=== PATIENT | male | born 1935 | race Caucasian/White ===

== ENCOUNTER 2025-02-23 12:22 | Inpatient (IN) | payer MEDICARE, OTHER, SELFPAY ==
[2025-02-23] VITALS (7 sets, daily range): BP systolic 121–150; BP diastolic 61–82; BMI 23.0
[2025-02-23] MEDS: MORPHINE SULFATE 2 MG IV (09:51)
--- NOTE | 2025-02-23 09:56 | ED.GENMED ---
History of Present Illness
<Nesha Hernández PA-C - Last Filed: 02/23/25 22:51>
General
Chief Complaint: Fall
Source: snf
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
Time Seen by Provider: 02/23/25 09:28
History of Present Illness
History of Present Illness:
Patient is an 89-year-old male history dementia, atrial fibrillation on Eliquis, hypertension, diabetes who presents to the emergency department via EMS from nursing facility after unwitnessed fall. History taking extremely limited as patient is
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 I did call and speak with one of the nurses at his facility who state that he was found on the ground in his room around 8:15 AM. A Belarusian speaking staff member at
the facility did have a conversation with him and apparently he had gotten up at his apartment to walk over and close his window when he tripped and fell. He states that he did not hit his head.
Patient's only complaint at that time was pain in his right hip.
On initial evaluation in the emergency department he persistently points to his right hip.
He is anticoagulated on Eliquis. He typically walks independently without a walker.
Review of Systems
<Nesha Hernández PA-C - Last Filed: 02/23/25 22:51>
Review of Systems
Allergies reviewed?: Yes
All Other Systems: ROS reviewed and negative except as documented in HPI and ROS
Phy Exam
<Nesha Hernández PA-C - Last Filed: 02/23/25 22:51>
Physical Exam
Physical Exam:
Vitals: Patient's vital signs are stable. Afebrile
General: Patient appears in no distress.
Skin: Warm and dry, no rashes or lesions
Head: Normocephalic, atraumatic
Eyes: Sclera nonicteric.
Throat: Protecting airway
Neck: Normal ROM, no cervical spine tenderness.
Cardiac: Regular rate and rhythm, no murmurs.
Pulm: Normal respiratory effort. Lungs clear bilaterally
Abdomen: Abdomen soft without obvious tenderness. No ecchymoses.
Extremities: Very minimal shortening and external rotation of right lower extremity. Tenderness to right hip as well as pain with any range of motion in right hip. Left lower extremity and bilateral upper extremities appear atraumatic and
nontender. Distal pulses intact
Neuro: Alert. 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 Moving all extremities
Psychiatric: Normal affect.
Course
<Nesha Hernández PA-C - Last Filed: 02/23/25 22:51>
Orders/Labs/Results
Orders:
Orders
02/23/25 Breakfast
NPO
Allow oral meds: Yes
Allow clear liquids: Sips of Clears
02/23/25 09:31
Electrocardiogram (*1) Urgent
Reason for Study: Other
Other Reason for Exam: fall
02/23/25 09:32
EKG- Treatment ONCE
02/23/25 09:40
CT Head W/o Iv Contrast Urgent
Comment:
Reason For Exam: unwitnessed fall
Cervical Spine wo Contrast CT [CT Cervical Spine W/o Iv Contr] Urgent
Comment:
Reason For Exam: unwitnessed fall
Morphine Sulfate 2 mg IV NOW STA
Hip, Right 2-3 Views [CR Hip - RT w/wo Pel 2-3 Vw*] Urgent
Comment:
Reason For Exam: fall
Include a pelvis x-ray?: Yes
02/23/25 09:42
pacemaker [Interrogate Pacemaker- Treatment] ONCE
02/23/25 09:57
CR Chest Single View Urgent
Reason For Exam: Fall
02/23/25 09:58
Basic Metabolic Panel Urgent
Complete Blood Count/With Diff Urgent
Creatine Phosphokinase Urgent
Comment: ADD ON
02/23/25 12:08
Femur, Right 2 View [CR Femur - Right Min 2 Vw] Urgent
Comment: requested by ortho
Reason For Exam: fall, intertroch hip fx
02/23/25 12:14
Admit/Transfer Patient As Directed
Co-Sign Provider:
Level of Care: Inpatient admission
Assign to:: Medical/Surgical
Physician / Group: dhiraj
Diagnosis: hip fracture
Reason for Hospitalization: hip fracture
Expected length of stay greater than two midnights?: Yes
ELOS- Estimated Length of Stay in days: 2
I certify the patient meets the requirements for IP care: Yes
02/23/25 12:15
Code Status As Directed
Resuscitation Status: Full Code
PRN Pain Medication Management As Directed
May give lesser potent ordered pain med per pt: Yes
preference::
Protocol:: Medication orders for pain may be administered in a
manner that supports deferring to patient preference
when the pt is:
- Requesting an ordered lesser potent pain medication.
Least to most potent pain medications are defined
as: acetaminophen < NSAID < tramadol < opioids
(morphine, oxycodone, hydromorphone).
- Requesting a lesser dose of the same medication IF
ORDERED.
- Requesting a less intrusive route of administration
if both routes are prescribed by the provider (PO <
IV).
02/23/25 12:21
Add On- LAB Routine
Tests Added?: ck
02/23/25 13:28
0.9% Sodium Chloride 1000 ml [Nss] 1,000 ml IV 80 mls/hr
Acetaminophen [Tylenol] 650 mg PO Q4HPRN PRN
02/23/25 13:28
Activity As Directed
Activity Level: As Tolerated
Pneumatic Compression Sleeves As Directed
Type: Knee high
Vital Signs As Directed
Frequency: Per unit guidelines
DX Deep Vein Thrombosis Video Routine
02/23/25 Dinner
Regular
At Your Request: Non-Participating
Does patient need a safe tray?: No
02/24/25 06:00
Complete Blood Count/With Diff IN AM
Comprehensive Metabolic Panel IN AM
Abnormal Lab Results
02/23/25
09:58
WBC 11.7 H 10^3/uL
(4.8-10.8)
RBC 4.08 L 10^6/uL
(4.70-6.10)
Hgb 11.8 L g/dL
(13.0-18.0)
Hct 36.0 L %
(39.0-52.0)
MCHC 32.8 L g/dL
(33.0-37.0)
RDW 14.9 H %
(11.5-14.5)
MPV 11.3 H fL
(7.4-10.4)
Absolute Neuts (auto) 10.1 H 10^3/uL
(1.4-6.5)
Absolute Lymphs (auto) 1.0 L 10^3/uL
(1.2-3.4)
Neutrophils % 85.9 H %
(42.2-75.2)
Lymphocytes % 8.1 L %
(20.5-51.1)
BUN 25 H mg/dl
(9-20)
Creatinine 1.4 H mg/dL
(0.7-1.3)
Glucose 130 H mg/dl
(70-99)
02/23/25 09:58
02/23/25 09:58
Vital Signs
Initial and Last Documented VS:
Initial Vital Signs
Temp Pulse Resp BP Pulse Ox
97.7 F 64 18 126/76 99
02/23/25 09:34 02/23/25 09:34 02/23/25 09:34 02/23/25 09:34 02/23/25 09:34
Last Documented Vital Signs
Temp Pulse Resp BP Pulse Ox
97.6 F 78 18 141/78 96
02/23/25 15:58 02/23/25 15:58 02/23/25 15:58 02/23/25 15:58 02/23/25 16:26
<Edwin Ballard, DO - Last Filed: 02/23/25 13:06>
Orders/Labs/Results
Orders:
Orders
02/23/25 Breakfast
NPO
Allow oral meds: Yes
Allow clear liquids: Sips of Clears
02/23/25 09:31
Electrocardiogram (*1) Urgent
Reason for Study: Other
Other Reason for Exam: fall
02/23/25 09:32
EKG- Treatment ONCE
02/23/25 09:40
CT Head W/o Iv Contrast Urgent
Comment:
Reason For Exam: unwitnessed fall
Cervical Spine wo Contrast CT [CT Cervical Spine W/o Iv Contr] Urgent
Comment:
Reason For Exam: unwitnessed fall
Morphine Sulfate 2 mg IV NOW STA
Hip, Right 2-3 Views [CR Hip - RT w/wo Pel 2-3 Vw*] Urgent
Comment:
Reason For Exam: fall
Include a pelvis x-ray?: Yes
02/23/25 09:42
pacemaker [Interrogate Pacemaker- Treatment] ONCE
02/23/25 09:57
CR Chest Single View Urgent
Reason For Exam: Fall
02/23/25 09:58
Basic Metabolic Panel Urgent
Complete Blood Count/With Diff Urgent
Creatine Phosphokinase Urgent
Comment: ADD ON
02/23/25 12:08
Femur, Right 2 View [CR Femur - Right Min 2 Vw] Urgent
Comment: requested by ortho
Reason For Exam: fall, intertroch hip fx
02/23/25 12:14
Admit/Transfer Patient As Directed
Co-Sign Provider:
Level of Care: Inpatient admission
Assign to:: Medical/Surgical
Physician / Group: dhiraj
Diagnosis: hip fracture
Reason for Hospitalization: hip fracture
Expected length of stay greater than two midnights?: Yes
ELOS- Estimated Length of Stay in days: 2
I certify the patient meets the requirements for IP care: Yes
02/23/25 12:15
Code Status As Directed
Resuscitation Status: Full Code
PRN Pain Medication Management As Directed
May give lesser potent ordered pain med per pt: Yes
preference::
Protocol:: Medication orders for pain may be administered in a
manner that supports deferring to patient preference
when the pt is:
- Requesting an ordered lesser potent pain medication.
Least to most potent pain medications are defined
as: acetaminophen < NSAID < tramadol < opioids
(morphine, oxycodone, hydromorphone).
- Requesting a lesser dose of the same medication IF
ORDERED.
- Requesting a less intrusive route of administration
if both routes are prescribed by the provider (PO <
IV).
02/23/25 12:21
Add On- LAB Routine
Tests Added?: ck
02/23/25 13:28
0.9% Sodium Chloride 1000 ml [Nss] 1,000 ml IV 80 mls/hr
Acetaminophen [Tylenol] 650 mg PO Q4HPRN PRN
02/23/25 13:28
Activity As Directed
Activity Level: As Tolerated
Pneumatic Compression Sleeves As Directed
Type: Knee high
Vital Signs As Directed
Frequency: Per unit guidelines
DX Deep Vein Thrombosis Video Routine
02/23/25 Dinner
Regular
At Your Request: Non-Participating
Does patient need a safe tray?: No
02/24/25 06:00
Complete Blood Count/With Diff IN AM
Comprehensive Metabolic Panel IN AM
Abnormal Lab Results
02/23/25
09:58
WBC 11.7 H 10^3/uL
(4.8-10.8)
RBC 4.08 L 10^6/uL
(4.70-6.10)
Hgb 11.8 L g/dL
(13.0-18.0)
Hct 36.0 L %
(39.0-52.0)
MCHC 32.8 L g/dL
(33.0-37.0)
RDW 14.9 H %
(11.5-14.5)
MPV 11.3 H fL
(7.4-10.4)
Absolute Neuts (auto) 10.1 H 10^3/uL
(1.4-6.5)
Absolute Lymphs (auto) 1.0 L 10^3/uL
(1.2-3.4)
Neutrophils % 85.9 H %
(42.2-75.2)
Lymphocytes % 8.1 L %
(20.5-51.1)
BUN 25 H mg/dl
(9-20)
Creatinine 1.4 H mg/dL
(0.7-1.3)
Glucose 130 H mg/dl
(70-99)
02/23/25 09:58
02/23/25 09:58
Vital Signs
Initial and Last Documented VS:
Initial Vital Signs
Temp Pulse Resp BP Pulse Ox
97.7 F 64 18 126/76 99
02/23/25 09:34 02/23/25 09:34 02/23/25 09:34 02/23/25 09:34 02/23/25 09:34
Last Documented Vital Signs
Temp Pulse Resp BP Pulse Ox
97.6 F 78 18 141/78 96
02/23/25 15:58 02/23/25 15:58 02/23/25 15:58 02/23/25 15:58 02/23/25 16:26
<Nesha Hernández PA-C - Last Filed: 02/23/25 22:51>
MDM/Problems Addressed
Differential Diagnosis Includes:
Not limited to: Hip fracture, hip dislocation, pelvic fracture, cervical spine fracture, intracranial hemorrhage, syncope, cardiac arrhythmia, orthostatic hypotension, acute dehydration, etc.
MDM/Problems Addressed:
89-year-old male with right hip pain after unwitnessed fall this morning. No report of head strike or loss of consciousness.
Vitals stable. 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 He does appear to have pain in his right hip. No evidence of other traumatic
injuries. Distal pulses intact bilaterally.
While there�s no report of syncope � given unwitnessed nature, will obtain basic labs, EKG, and interrogate pacemaker. Will check CT head and cervical spine as well as x-ray of right hip. Will treat pain.
Update: Labs reviewed. Mild renal insufficiency. CT head /cervical spine without acute abnormalities. Right hip x-ray reveals intertrochanteric fracture of right femur.
Patient will require admission for further management of right hip fracture. Discussed with orthopedics. Patient accepted to hospitalist service in stable condition.
Chronic conditions affecting care:
Atrial fibrillation on Xarelto, dementia
Acute Exacerbation and/or Progression of Chronic Illness:
N/A
<Nesha Hernández PA-C - Last Filed: 02/23/25 22:51>
*Radiology
Radiology exam reviewed: preliminary read by ED provider (Right hip x-ray reviewed by me -intertrochanteric fracture of right hip)
*Pulse Oximetry
SaO2: 99
Oxygen Mode of Delivery: Room air
Patient hypoxic: no
*EKG
Interpreted by ED Provider?: Yes
EKG Intrepretation Date: 02/23/25
Interpretation: abnormal
Comparison EKG: no comparison EKG present
Heart Rate: 74
Rate: normal
Rhythm: av sequential
Interval: normal QT interval
QRS Pattern: normal QRS
Ischemia: no ischemia
*Sales Representative [employer] Interpretation
Rate: normal
Interpretation: abnormal
Heart Rate: 74
Rhythm: av sequential
*Critical Care Note
Total Time (30-74mins, 75-104mins- exclusive of procedures): Not Applicable
<Nesha Hernández PA-C - Last Filed: 02/23/25 22:51>
Patient Management
Discussion with other providers: Hospitalist and Director Of Maintenance (Discussed with orthopedics)
ED Attending Note
<Nesha Hernández PA-C - Last Filed: 02/23/25 22:51>
-
Portions of this chart may have been created with voice recognition software.� Occasional wrong word or��sound alike� substitutions may have occurred due to the inherent limitations of voice recognition software.
<Edwin Ballard DO - Last Filed: 02/23/25 13:06>
ED Attending Note
Patient seen and examined by attending physician: Yes
I performed the substantive portion of visit, reviewed & personally made and approve the management plan that is documented in note by myself or LITO.: Yes
ED Attending Note:
I reviewed the x-ray. Patient is found to have a right intertrochanteric fracture. Ortho was consulted. Patient will be admitted to the hospital.
Discharge Plan
Departure
Patient Disposition: Admit
Date of Disposition: 02/23/25
Time of Disposition: 12:01
Presentation/result/management discussed w/ accepting MD/DO: Hospitalist
Discharge Problem:
Intertrochanteric fracture of right hip
Interventions
Interventions:
*Risk Screen - Suicide Last Done: 02/23/25 10:14
*General Assessment Last Done: 02/23/25 09:34
*Neglect/Abuse Screening Last Done: 02/23/25 09:34
*ED- Fall Risk Assessment Last Done: 02/23/25 09:34
*ED COVID-19 Vaccine History Last Done: 02/23/25 09:34
*ED Influenza Vaccine History Last Done: 02/23/25 09:34
*Nursing Disposition Last Done: 02/23/25 12:55
ED-Musculoskeletal Assessment Last Done: 02/23/25 10:14
ED- Neurological Assessment Last Done: 02/23/25 10:14
ED-Skin Assessment Last Done: 02/23/25 10:14
Discharge Date and Time
Discharge Date/Time: 02/23/25 13:02
[2025-02-23 10:05] LABS: Hematocrit 36.0 % (39.0-52.0); Hemoglobin 11.8 g/dL (13.0-18.0); Mean Corp Hgb Conc. 32.8 g/dL (33.0-37.0); Mean Corpuscular Volume 88.2 fL (80.0-94.0); Nucleated Red Blood Cells % 0 % (-); Platelet Count 224 10^3/uL (130-400); Red Cell Dist. Width 14.9 % (11.5-14.5)
[2025-02-23 10:30] LABS: Blood Urea Nitrogen 25 mg/dl (9-20); Calcium 9.0 mg/dl (8.4-10.2); Carbon Dioxide 24 mmol/L (22-30); Chloride 106 mmol/L (98-107); Estimated Creatinine Clearance 36 ml/min; Glucose 130 mg/dl (70-99); Potassium 4.2 mmol/L (3.5-5.1); Sodium 139 mmol/L (135-145); eGFR 48.34
--- NOTE | 2025-02-23 12:23 | HPS.HSE ---
Family Physician
-
Family Physician: Alexandre Huynh MD
Chief Complaint
-
fall, right hip pain
History of Present Illness
89-year-old Mozambican-speaking male past medical history of atrial fibrillation on Eliquis with pacemaker, dementia, hypertension, diabetes presenting from nursing facility after unwitnessed fall. 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
As per nurses at the facility he was found down on the ground at 8:15 AM. Mozambican-speaking staff member at the facility had a conversation with him and he had gone up at his apartment to walk over and close his window when he tripped and fell. Did
not hit his head. He only complained of right hip pain which he continues to have.
He normally ambulates independently with a walker.
Patient without any other cardiac issues apart from atrial fibrillation with pacemaker.
Medical History
Past Medical History
Past Medical History: Reports Other (atrial fibrillation on Eliquis with pacemaker, dementia, hypertension, diabetes)
Past Surgical History: Reports None
Social History
Tobacco: Non-smoker
Alcohol: None
Drug: None
Family History
Family History: Not pertinent
Allergies / Home Medications
Allergies reflects when Allergies were last updated in [facility].
Home Medications with original date entered in [facility]
Allergy/Medication List:
Allergies
Allergy/AdvReac Type Severity Reaction Status Date / Time
No Known Allergies Allergy Unverified 02/23/25 09:30
Home Medications
acetaminophen 325 mg tablet 650 mg PO Q6H PRN mild pain 02/23/25
apixaban 2.5 mg tablet (Eliquis) 2.5 mg PO BID 02/23/25
bisacodyl 10 mg rectal suppository 10 mg GA DAILY PRN constipation 02/23/25
cholecalciferol (vitamin D3) 125 mcg (5,000 unit) tablet (Vitamin D3) 125 mcg PO DAILY 02/23/25
finasteride 5 mg tablet (Proscar) 5 mg PO DAILY 02/23/25
folic acid 1 mg tablet 1 mg PO DAILY 02/23/25
magnesium hydroxide 400 mg/5 mL oral suspension (Milk of Magnesia) 30 ml PO DAILY PRN constipation 02/23/25
melatonin 3 mg tablet 3 mg PO HS PRN for sundowning behaviors 02/23/25
memantine ER 28 mg-donepezil 10 mg capsule sprinkle,ext.release 24 hr (Namzaric) 1 cap PO .EVENING 02/23/25
quetiapine 25 mg tablet (Seroquel) 25 mg PO DAILY 02/23/25
quetiapine 25 mg tablet (Seroquel) 75 mg PO HS 02/23/25
tamsulosin 0.4 mg capsule (Flomax) 0.4 mg PO HS 02/23/25
trazodone 50 mg tablet 50 mg PO HS 02/23/25
Review of Systems
-
History Source: Patient
A 12 point ROS was completed and negative except as noted: Yes
Constitutional: Reports No Symptoms
EENT: Reports No Symptoms
Respiratory: Reports No Symptoms
Cardiac: Reports No Symptoms
Abdomen/GI: Reports No Symptoms
: Reports No Symptoms
Musculoskeletal: Reports No Symptoms
Skin: Reports No Symptoms
Neurological: Reports No Symptoms
Endocrine: Reports No Symptoms
Hematologic/Lymphatic: Reports No Symptoms
Psych: Reports No Symptoms
Physical Exam
Vital Signs
Vital Signs
Temp Pulse Resp BP Pulse Ox
97.7 F 72 11 127/63 98
02/23/25 09:34 02/23/25 10:18 02/23/25 10:18 02/23/25 10:01 02/23/25 10:01
Physical Exam
General: Well Developed, Well Nourished and No Apparent Distress
HEENT: NormoCephalic, Moist mucous membranes and Atraumatic
Respiratory: Clear
Cardiac: S1/S2 and Regular Rhythm; No Murmur or Rub
GI: Soft, Non Tender, Non Distended and Normal Bowel Sounds; No Organomegaly
Rectal: Deferred by Provider
Musculoskeletal: No Clubbing, No Cyanosis and No Edema
Skin: No Rash
Neuro: Nonfocal/grossly intact
Laboratory Results
-
02/23/25 09:58
02/23/25 09:58
Data Reviewed
-
Lab Data: Labs Reviewed by me
Old Records: Reviewed
Impression/Plan
-
IMPRESSION:
PLAN:
# Mechanical fall with right hip fracture
-Leukocytosis likely reactive
- As per hip x-ray
-CT head/cervical spine shows no acute abnormality
- Femur x-ray pending
- Hold Eliquis
-N.p.o. past midnight
- Orthopedics consulted
- Check CK
- EKG shows AV dual paced rhythm
- Patient without any active cardiac problems, low risk of close cardiac complications and he can proceed to surgery
# COLTON versus CKD
- IV fluids
Paroxysmal atrial fibrillation with pacemaker
-Hold Eliquis
Dementia
- Continue trazodone, Seroquel, memantine, donepezil
Essential hypertension
Type 2 diabetes
-not on diabetes medication
BPH
-Continue tamsulosin, finasteride
Presumably chronic anemia
- Hemoglobin 11.8, continue to monitor
Full code
DVT prophylaxis SCDs
N.p.o. past midnight
--- NOTE | 2025-02-23 12:46 | EDCM ---
CM reviewed chart, pt is Belgian speaking. I spoke to his son Hernan on the phone. Pt resides at [facility], [facility] resident since 10/2024.
Pt needs assistance with ADLs and personal care, ambulates independently without assistive device.
PCP: Alexandre Huynh at [facility]
Meds suppled by [facility], no pharmacy listed on transfer sheet
Anticipate return to [facility] at discharge, possible STR. CM will continue to follow.
--- NOTE | 2025-02-23 13:55 | PTCARENOTE ---
Received Pt from ED via stretcher. Pt AAOX1. Stateless speaking. Pt has hx of dementia. Bed alarm on. Call pedroza within reach. Plan of care ongoing.
[2025-02-23] MEDS: NSS 1000 IV (14:00)
--- NOTE | 2025-02-23 15:14 | CON.ORTHO ---
Consultation
-
Date/Time Consultation Requested: 02/23/2025 @ 13:28
Date/Time Consultation Performed: 02/23/2025 @ 14:12
Requesting Provider: Priti Jack MD
Performing Provider: Sterling Franco PA-C for Dr. Kamaljit Briscoe MD
Reason for Consultation: Right Hip Pain
Consultation - Orthopedics
History
Orthopedic Surgery Note
CC: Right hip pain s/p unwitnessed mechanical fall 02/23/25 @ 8:15 AM
HPI: The patient is an 89-year-old Greek-speaking male with a PMH significant for Dementia, Atrial fibrillation on Eliquis with pacemaker (last dose 02/23/25 @ 7:30 AM), Hypertension, and Diabetes presenting to [facility] ED after sustaining an
unwitnessed fall earlier this morning. History obtained via chart and discussion with Marsha Edwards. Also discussed with patient's son (LUCRECIA Becerra. It is reported that the patient was found down on the ground at around 8:15 AM this
morning. It is reported that he had gotten up to walk over and close his window when he tripped and fell (Greek speaking staff member at the facility was able to obtain this information). It is reported that he did not hit his head. He only
complained of right hip pain. X-rays obtained in the ED revealed a right intertrochanteric proximal femur fracture. He typically walks independently without an assistive device. Orthopedic surgery was consulted for further management. Eliquis is
on hold.
PMH/PSH: Dementia, Atrial fibrillation on Eliquis with pacemaker (last dose 02/23/25 @ 7:30 AM), Hypertension, and Diabetes
Medications: Reviewed.
Family History: Family history was reviewed. Noncontributory
Social history: Nonsmoker, no illicit drugs.
Exam
General appearance: Pleasant. No acute distress.
Head: Normocephalic/atraumatic
Nose: No lesions or discharge.
Skin: No obvious rashes or open wounds
Lungs: No audible wheezing, no cough or sputum production
Musculoskeletal:
RLE:
Directed examination of the right lower extremity reveals leg shortened and externally rotated. (+) TTP about the right hip/lateral thigh. Compartments are soft and compressible. (+) Logroll. Calf is soft and nontender to palpation. Capillary
refill is <2 seconds.
Imaging:
Xrays:
CR Hip - RIGHT w/wo Pel 2-3 Vw* was obtained at [facility] on 02/23/2025 and was made available for my review today. Findings: There is an intertrochanteric fracture of the right proximal femur, without significant displacement or
angulation. No other fracture is identified. Minimal degenerative change of the superolateral hip joints bilaterally. Impression: Intertrochanteric fracture of the right proximal femur.
CR Femur - RIGHT Min 2 Vw was obtained at [facility] on 02/23/2025 and was made available for my review today. Findings: Bones - There is a minimally displaced intertrochanteric proximal femur fracture. To the right hip joint appears
maintained. There is no evidence of distal femoral fracture. Soft tissue - No soft tissue abnormality is seen. There are mild rectal stool burden. Minimal scattered vascular calcifications. Partially visualized degenerative changes of the right
knee with associated chondrocalcinosis. Impression: Minimally displaced intertrochanteric right femoral fracture.
Assessment: 89-year-old Greek-speaking male with a PMH significant for Dementia and Atrial fibrillation on Eliquis with pacemaker (last dose 02/23/25 @ 7:30 AM) with a RIGHT minimally displaced intertrochanteric right femoral fracture.
Plan: Unfortunately, the patient has sustained a right hip fracture. Treatment options, including both nonoperative and operative approaches were discussed with the patient's POA (son Alondra Dior: [phone]) today. After thorough
discussion, shared decision was to proceed with surgical treatment. The risks, benefits, potential complications, and expected post-operative course were reviewed. We will plan for RIGHT hip cephalomedullary nail under the direction of Dr. Briscoe
tomorrow, Tuesday02/24/2025. The patient has been medically cleared to proceed to the OR. Surgical and blood consents were obtained and placed on the patient's chart; consent obtained by POA and witnessed by the patient's nurse. Paulinaef on-call to
OR. NPO pMN 02/23/2025. Remain NWB to RLE until post-op. He is to remain on bedrest for now. Continue with pain medications as needed. Type and screen requested. Hemoglobin this AM 11.8. Right hip marked as the correct surgical extremity.
Orthopedic surgery will continue to follow along.
Allergies / Home Medications
Allergy/AdvReac Type Severity Reaction Status Date / Time
No Known Allergies Allergy Unverified 02/23/25 09:30
�Medication �Instructions �Recorded
acetaminophen 325 mg tablet 650 mg PO Q6H PRN mild pain 02/23/25
apixaban 2.5 mg tablet (Eliquis) 2.5 mg PO BID 02/23/25
bisacodyl 10 mg rectal suppository 10 mg ME DAILY PRN constipation 02/23/25
cholecalciferol (vitamin D3) 125 125 mcg PO DAILY 02/23/25
mcg (5,000 unit) tablet (Vitamin
D3)
cyanocobalamin (vitamin B-12) 1,000 mcg PO DAILY 02/23/25
1,000 mcg tablet
finasteride 5 mg tablet (Proscar) 5 mg PO DAILY 02/23/25
folic acid 1 mg tablet 1 mg PO DAILY 02/23/25
magnesium hydroxide 400 mg/5 mL 30 ml PO DAILY PRN constipation 02/23/25
oral suspension (Milk of Magnesia)
melatonin 3 mg tablet 3 mg PO HS PRN for 02/23/25
behaviors
memantine ER 28 mg-donepezil 10 mg 1 cap PO .EVENING 02/23/25
capsule sprinkle,ext.release 24 hr
(Namzaric)
quetiapine 25 mg tablet (Seroquel) 25 mg PO DAILY 02/23/25
quetiapine 25 mg tablet (Seroquel) 75 mg PO HS 02/23/25
tamsulosin 0.4 mg capsule (Flomax) 0.4 mg PO HS 02/23/25
trazodone 50 mg tablet 50 mg PO HS 02/23/25
Vital Signs / Lab Results
Temp Pulse Resp BP Pulse Ox
97.8 F 88 16 147/80 96
02/23/25 13:35 02/23/25 13:35 02/23/25 13:35 02/23/25 13:35 02/23/25 13:50
02/23/25 09:58
02/23/25 09:58
[2025-02-23] MEDS: SEROQUEL 75 MG PO ×2 (16:59→22:32)
[2025-02-23] MEDS: TYLENOL 650 MG PO (16:59)
[2025-02-23] MEDS: TYLENOL PO (17:08)
[2025-02-23] MEDS: NAMENDA 10 MG PO (20:11)
[2025-02-23] MEDS: FLOMAX 0.4 MG PO (22:32)
[2025-02-23] MEDS: DESYREL 50 MG PO (22:32)
[2025-02-24] VITALS (13 sets, daily range): BP systolic 104–150; BP diastolic 56–86; PULSE 79; O2SAT 96
[2025-02-24] MEDS: MORPHINE SULFATE 2 MG IV ×3 (00:21→14:56)
--- NOTE | 2025-02-24 05:39 | PTCARENOTE ---
Pt cooperative @ beginning of shift able to take crushed medications and able to redirect. Pt received HS Seroquel and Trazodone but only able to sleep a few hours. Pt restless when incont, changed for multiple BM and incont large voids. Attempted
to give crushed med and pt refused. IV pain medication provided
[2025-02-24] MEDS: TYLENOL PO ×4 (06:16→17:27)
[2025-02-24 06:24] LABS: Hematocrit 31.9 % (39.0-52.0); Hemoglobin 10.5 g/dL (13.0-18.0); Mean Corp Hgb Conc. 32.9 g/dL (33.0-37.0); Mean Corpuscular Volume 90.6 fL (80.0-94.0); Nucleated Red Blood Cells % 0 % (-); Platelet Count 181 10^3/uL (130-400); Red Cell Dist. Width 14.9 % (11.5-14.5)
[2025-02-24 06:48] LABS: ALT (SGPT) 16 U/L (0-50); AST (SGOT) 19 U/L (17-59); Albumin 3.2 g/dl (3.5-5.0); Alkaline Phosphatase 93 U/L (38-126); Blood Urea Nitrogen 25 mg/dl (9-20); Calcium 8.8 mg/dl (8.4-10.2); Carbon Dioxide 27 mmol/L (22-30); Chloride 106 mmol/L (98-107); Estimated Creatinine Clearance 39 ml/min; Glucose 106 mg/dl (70-99); Potassium 4.6 mmol/L (3.5-5.1); Sodium 135 mmol/L (135-145); Total Protein 6.1 g/dl (6.3-8.2); eGFR 52.84
--- NOTE | 2025-02-24 07:36 | W.PN.UPDATE ---
Update Note
Progress Note Update
89-year-old male with a RIGHT minimally displaced intertrochanteric right proximal femur fracture. Plan for OR this morning for RIGHT hip CMN under the direction of Dr. Briscoe. Remain NPO. Hgb this AM 10.5. T&S completed. Consents in chart.
Orthopedic surgery will continue to follow along.
--- NOTE | 2025-02-24 10:13 | OR.RPT ---
Operative Report
Operative Report
Orthopaedic Surgery Operative Note
DATE OF OPERATION: 02/24/2025
PREOPERATIVE DIAGNOSIS: Intertrochanteric Hip Fracture, Right
POSTOPERATIVE DIAGNOSIS: Same
OPERATION PERFORMED: Right intertrochanteric hip fracture open reduction and internal fixation with cephalomedullary nail
SURGEON: Kamaljit Briscoe MD
CONSTRUCTION MILLWRIGHT: NA
ANESTHESIA: General
COMPLICATIONS: None.
ESTIMATED BLOOD LOSS: 100 mL.
DRAINS: None
SPECIMEN: None
IMPLANTS:
Sunburst Gamma 4 Cephalomeduallary nail; 170mm x 11 mm
Sunburst lag screw, 110 mm.
5.0mm distal interlocking screw x1
INDICATIONS FOR PROCEDURE
89M presented to the ED after an unwitnessed fall. Xrays showed displaced right intertrochanteric femur fracture. I discussed treatment options with the patient and family including nonoperative and operative treatments. We reviewed the natural
history of the problem, as well as the risks, benefits, and alternatives of various treatment options. Shared decision was to proceed with surgical treatment. The patient and family understood the risks including, but were not limited to, bleeding,
infection, failure to relieve pain, more pain than preop, damage to blood vessels and nerves, need for reoperation, mechanical failure of the implants, wound healing problems, stiffness, instability, blood clot, pulmonary embolism, myocardial
infarction, pneumonia, arrhythmia, CVA, and . All questions were answered, and informed consent was obtained.
PROCEDURE IN DETAIL: The patient was identified in the preoperative holding area. The operative limb was identified as the operative site and marked with my initials. The patient was transferred to the operating room. General anesthesia was
performed. The patient was transferred to the [facility] operative table. IV antibiotics and tranexamic acid were given. All bony prominences were well padded. The operative limb was prepped and draped in the usual sterile fashion.
We performed a surgical time-out. A 1.6mm (0.65'') bertin wire was placed in the distal femur, and traction bow was applied. This was well padded over the knee. 15lbs of skeletal traction was applied. The fracture was reduced with the aid of
flouroscopy. The guide wire was placed over the medial aspect of the tip of the greater trochanter. The guide wire was advanced and checked for appropriate position on AP and lateral. The pin guide wire was advanced to the level of the lesser
trochanter. Incision was made about the wire. The opening reamer was used to open the starting point over the guide wire. The nail was then inserted to the appropriate depth. The guide wire was removed. The targeting guide was assembled, and a
lateral incision was made for lag screw placement. A guide pin was advanced into the femoral head. Position was checked on AP and lateral. The length was measured to be 115mm. The drill was set to the appropriate depth, and the lag screw path was
drilled over the guide wire. The lag screw was then inserted into the femoral head just distal to the subchondral bone. Traction was released and compression was applied. The locking screw was then placed into the top of the nail. A single distal
interlocking screw was placed into the static interolocking hole with through the targeting guide. Final fluoroscopy shots were performed which showed appropriate position and length of the implant and anatomic reduction of the fracture.
The incisions were copiously irrigated with 3L normal saline. The deep fascial layers were closed with 0 PDS. The dermal layer closed with 2-0 PDS running. The skin was closed with 3-0 monocryl. Skin glue was applied as well as sterile dressings.
The patient was awoken from anesthesia without complication.
The patient awoke from anesthesia without difficulty. Sponge and instrument counts were correct x2 at the end of the case.
I was present and participated in the entire procedure. The patient was sent to the recovery room in stable condition.
Post operative plan:
WBAT
PT/OT
Pain control
Delirium prevention
ABX: Ancef x24 hours
DVT: Resume Factor X tonight or tomorrow AM
Phillip Briscoe MD
[2025-02-24 10:36] LABS: Glucose - Point of Care 110 mg/dl (70-99)
--- NOTE | 2025-02-24 11:03 | CM ---
Addendum entered by Bernice Soriano 02/25/25 13:54:
CM notified by Dr. Noriega that Jc is ready to return to [facility] today. CM to coordinate transport.
Report [phone]

Original Note:
Patient to return to [facility] when stable, roasterman care resident.
[place]
Report [phone]
[2025-02-24] MEDS: NSS 1000 IV (11:27)
[2025-02-24] MEDS: VITAMIN D3 (cholecalciferol) PO (11:39)
[2025-02-24] MEDS: VITAMIN B-12 PO (11:39)
[2025-02-24] MEDS: SEROQUEL PO (11:39)
[2025-02-24] MEDS: PROSCAR PO (11:39)
[2025-02-24] MEDS: NAMENDA PO (11:40)
[2025-02-24] MEDS: ARICEPT PO (11:40)
[2025-02-24] MEDS: FOLVITE PO (11:40)
--- NOTE | 2025-02-24 11:56 | PTCARENOTE ---
Received update from PACU - Unable to transport back. Assisted tech with transport of Pt back to 2107; Settled back in room - Pt awake, alert and oriented to self only. VSS; Pt refused all meds. Will continue to monitor and assess.
--- NOTE | 2025-02-24 12:22 | W.PN.HOSP.TC ---
Today's Communication/Plan
-
PT OT
DC planning
Assessment / Plan
Assessment / Plan
89yo M with PMHx of Afib on ELiquis, BPH, Anxiety, Insomnia, demetia came from SNF after unwitnessed fall. On arrival found minimally displaced intertrochanteric right femoral fracture, s/p Right intertrochanteric hip fracture open reduction and
internal fixation with cephalomedullary nail on 02/24/25
A/P:
#right femoral fracture
s/p Right intertrochanteric hip fracture open reduction and internal fixation with cephalomedullary nail on 02/24/25 by ortho
PT/OT
pain mgmt
#Unwitnessed fall
patient unable to provide Hx of episode due to dementia
#Leukocytosis on admisison
resolved
#Dementia, unspecified
#BPH
#B12 deficiency
#Afib, permanent
cont home meds
watch for urinary retention
DVT ppx Elqiuis
Full code
I have spent at least 57min reviewing chart, test results, communication with consultants and providing direct patient care
Anticipated Discharge: 24 - 48 hours
Subjective/Interval History
-
Date of Service: February 24, 2025
Objective Data
-
Labs:
Laboratory Results
02/24/25
05:29
WBC 8.5
Hgb 10.5 L
Hct 31.9 L
Plt Count 181
Sodium 135
Potassium 4.6
Chloride 106
Carbon Dioxide 27
BUN 25 H
Creatinine 1.3
Glucose 106 H
Calcium 8.8
Total Bilirubin 1.2
AST 19
ALT 16
Alkaline Phosphatase 93
Vital Signs:
Vital Signs
Temp Pulse Resp BP Pulse Ox
99.1 F 77 12 104/56 96
02/24/25 11:25 02/24/25 11:25 02/24/25 11:25 02/24/25 11:25 02/24/25 11:25
I&O
02/23/25 02/24/25 02/25/25
06:59 05:59 06:59
Intake Total 1600 / 1600 100 / 100
Balance 1600 / 1600 100 / 100
Review of Systems
-
Unable to obtain full review of systems at this time due to: Dementia
Physical Exam
-
General: No Apparent Distress
Respiratory: Clear to Auscultation
Cardiac: Irregular Rhythm
GI: Soft, Nontender and Nondistended
Neuro: Awake and Alert
Psych: Confused and Apparent Dementia
[2025-02-24] MEDS: NSS IV (15:42)
[2025-02-24] MEDS: ANCEF 5 IV (17:26)
[2025-02-24] MEDS: SEROQUEL 75 MG PO (22:59)
[2025-02-24] MEDS: FLOMAX 0.4 MG PO (22:59)
[2025-02-24] MEDS: NAMENDA 10 MG PO (22:59)
[2025-02-24] MEDS: DESYREL 50 MG PO (22:59)
--- NOTE | 2025-02-24 23:00 | PTCARENOTE ---
Pt. acting in a combative manner when trying to be changed after incontinence episode. Pt was grabbing at this RN and also the tech during the change and swatting his hand like he was about to hit them. Prior to getting cleaned up, pt was
attempting to get out of bed multiple times, bed alarm was on and working. Pt is not redirectable, is brit[place] virgin islander speaking and has severe dementia. For patient's safety, this RN reached out to TELEVISION OPERATOR for restraint order. Will apply restraints once ordered
and will continue to monitor pt's behavior and the effectiveness of the restraints.
[2025-02-24] MEDS: HALDOL 1 MG IV (23:32)
[2025-02-25] MEDS: TYLENOL PO ×3 (00:25→17:24)
[2025-02-25] MEDS: ANCEF 5 IV (00:54)
[2025-02-25] MEDS: NSS 1000 IV (03:07)
[2025-02-25 03:17] VITALS: BP 128/66
[2025-02-25 07:09] LABS: Hematocrit 29.2 % (39.0-52.0); Hemoglobin 9.4 g/dL (13.0-18.0); Mean Corp Hgb Conc. 32.2 g/dL (33.0-37.0); Mean Corpuscular Volume 91.0 fL (80.0-94.0); Nucleated Red Blood Cells % 0 % (-); Platelet Count 164 10^3/uL (130-400); Red Cell Dist. Width 15.0 % (11.5-14.5)
[2025-02-25 07:20] VITALS: BP 133/72
[2025-02-25 07:36] LABS: ALT (SGPT) 13 U/L (0-50); AST (SGOT) 21 U/L (17-59); Albumin 3.0 g/dl (3.5-5.0); Alkaline Phosphatase 89 U/L (38-126); Blood Urea Nitrogen 25 mg/dl (9-20); Calcium 8.5 mg/dl (8.4-10.2); Carbon Dioxide 27 mmol/L (22-30); Chloride 107 mmol/L (98-107); Estimated Creatinine Clearance 42 ml/min; Glucose 95 mg/dl (70-99); Potassium 4.5 mmol/L (3.5-5.1); Sodium 135 mmol/L (135-145); Total Protein 5.8 g/dl (6.3-8.2); eGFR 58.17
--- NOTE | 2025-02-25 08:24 | W.PN.ORTHO ---
Today's Communication / Plan
-
Appreciate the primary team, continue treatment
Dispo likely SNF, appreciate CM
Continue WBAT B/L LEs on walker/assistance
PT/OT
Eliquis for DVT ppx, pr per primary
Pain control, avoid narcs if possible
Dressing to remain while inpatient/SNF
Outpatient follow-up 2-4 weeks for xrays and exam (Dr. Briscoe's PA)
Will follow
Assessment
.
Distal Motor Intact: Yes
Dressing:
Clean, dry and intact. Mepilex in place right thigh
Assessment:
POD#1 Right Hip Gamma
Calf soft, nontender
Plan
.
Surgery / Date: Right hip Gamma 2 Mar 19 (Lu[facility] Fel[facility])
DVT Prophylaxis: Other (Eliquis)
Activity:
Out of bed. WBAT RLE on walker/assistance
PT/OT
Discharge Plan: SNF (appreciate CM)
Subjective
.
.:
Patient resting comfortably.
Vital Signs and Labs
.
Vital Signs and Labs:
Lab Results
02/25/25 06:17
02/25/25 06:17
Temp Pulse Resp BP Pulse Ox
97.9 F 74 16 128/66 94
02/25/25 03:17 02/25/25 03:17 02/25/25 03:17 02/25/25 03:17 02/25/25 03:17
[2025-02-25] MEDS: FOLVITE 1 MG PO (08:50)
[2025-02-25] MEDS: ELIQUIS 2.5 MG PO ×2 (08:50→20:29)
[2025-02-25] MEDS: SEROQUEL 25 MG PO (08:50)
[2025-02-25] MEDS: PROSCAR PO ×2 (08:50→09:28)
[2025-02-25] MEDS: ARICEPT 10 MG PO (08:51)
[2025-02-25] MEDS: VITAMIN D3 (cholecalciferol) 125 MCG PO (08:51)
[2025-02-25] MEDS: VITAMIN B-12 PO ×2 (08:51→09:28)
[2025-02-25] MEDS: NAMENDA 10 MG PO ×2 (08:51→20:29)
[2025-02-25 09:25] VITALS: BP 109/59; PULSE 82; O2SAT 95
[2025-02-25] MEDS: TYLENOL 650 MG PO (11:47)
[2025-02-25 11:51] VITALS: BP 128/76
--- NOTE | 2025-02-25 13:11 | W.PN.HOSP.TC ---
Today's Communication/Plan
-
Assessment / Plan
Assessment / Plan
89yo M with PMHx of Afib on ELiquis, BPH, Anxiety, Insomnia, demetia came from SNF after unwitnessed fall. On arrival found minimally displaced intertrochanteric right femoral fracture, s/p Right intertrochanteric hip fracture open reduction and
internal fixation with cephalomedullary nail on 02/24/25
NAD
Scleral Anicteric
MMM
CTABL
RRR, S1/S2
Soft, NT, ND, BS+
Warm, Dry
Calm
A/P:
#right femoral fracture
s/p Right intertrochanteric hip fracture open reduction and internal fixation with cephalomedullary nail on 02/24/25 by ortho
PT/OT recommends SNF
pain mgmt
#Unwitnessed fall
patient unable to provide Hx of episode due to dementia
#Leukocytosis on admisison
resolved
#Dementia, unspecified
#BPH
#B12 deficiency
#Afib, permanent
cont home meds
watch for urinary retention
DVT ppx Elqiuis
Full code
Dispo: SNF cleared
Pending bed availablity and Auth
Anticipated Discharge: Within 24 hours
Subjective/Interval History
-
Date of Service: February 25, 2025
Seen and examined. No new complaints. No acute overnight events.
Objective Data
-
Labs:
Laboratory Results
02/25/25
06:17
WBC 8.7
Hgb 9.4 L
Hct 29.2 L
Plt Count 164
Sodium 135
Potassium 4.5
Chloride 107
Carbon Dioxide 27
BUN 25 H
Creatinine 1.2
Glucose 95
Calcium 8.5
Total Bilirubin 0.8
AST 21
ALT 13
Alkaline Phosphatase 89
Vital Signs:
Vital Signs
Temp Pulse Resp BP Pulse Ox
97.9 F 82 16 128/76 98
02/25/25 11:51 02/25/25 11:51 02/25/25 11:51 02/25/25 11:51 02/25/25 11:51
I&O
02/24/25 02/25/25 02/26/25
05:59 06:59 06:59
Intake Total 1600 / 1600 220 / 220 240 / 240
Balance 1600 / 1600 220 / 220 240 / 240
[2025-02-25] MEDS: MORPHINE SULFATE 2 MG IV (14:40)
--- NOTE | 2025-02-25 15:25 | PTCARENOTE ---
0900 Restraints removed this morning. Pt was cooperative, although confused throughout the day. Pt able to feed himself, appears comfortable. Pt took some meds crushed in applesauce.
1400 Pt became increasingly agitated, urinating on the floor, pulled off medial and lateral knee dressings, skin c/d/i underneath. Rubbing knee, appears to have pain. 2mg IV Morphine given. Language line unsuccessful to communicate, hot knife foxing cutter
saying he was not making any sense. Chair alarm in place.
[2025-02-25 15:50] VITALS: BP 138/68
--- NOTE | 2025-02-25 16:36 | CM ---
Pt is from [facility] and will return there when medically cleared.
[2025-02-25] MEDS: ZYPREXA 5 MG IM (16:45)
[2025-02-25] MEDS: STERILE WATER FOR INJECTION 2.1 ML IM (16:47)
[2025-02-25] MEDS: DESYREL 50 MG PO (21:07)
[2025-02-25] MEDS: SEROQUEL 75 MG PO (21:07)
[2025-02-25] MEDS: MELATONIN 3 MG PO (22:37)
[2025-02-25] MEDS: ZYPREXA 2.5 MG PO (22:37)
[2025-02-25] MEDS: FLOMAX PO (22:53)
[2025-02-25 23:06] VITALS: BP 125/66
[2025-02-26] MEDS: TYLENOL PO ×3 (00:50→13:40)
[2025-02-26 08:01] VITALS: BP 128/85
[2025-02-26] MEDS: ELIQUIS 2.5 MG PO (08:31)
[2025-02-26] MEDS: ARICEPT 10 MG PO (08:31)
[2025-02-26] MEDS: VITAMIN B-12 1000 MCG PO (08:31)
[2025-02-26] MEDS: PROSCAR 5 MG PO (08:31)
[2025-02-26] MEDS: VITAMIN D3 (cholecalciferol) 125 MCG PO (08:31)
[2025-02-26] MEDS: NAMENDA 10 MG PO (08:31)
[2025-02-26] MEDS: FOLVITE 1 MG PO (08:31)
[2025-02-26] MEDS: SEROQUEL 25 MG PO (08:32)
--- NOTE | 2025-02-26 09:10 | W.PN.ORTHO ---
Today's Communication / Plan
-
POD #2 s/p right hip gamma nail
Appreciate the primary team, continue treatment
Dispo likely SNF, appreciate CM
Continue WBAT B/L LEs on walker/assistance
PT/OT
Eliquis for DVT ppx, pr per primary
Pain control, avoid narcs if possible
Dressing to remain while inpatient/SNF
Outpatient follow-up 2-4 weeks for xrays and exam (Dr. Briscoe's PA)
Will sign off from ortho standpoint for now. Please re-engage with further questions/concerns.
Assessment
.
Distal Motor Intact: Yes
Dressing:
Clean, dry and intact.
Assessment:
POD #2 s/p right hip gamma nail
Appreciate the primary team, continue treatment
Dispo likely SNF, appreciate CM
Continue WBAT B/L LEs on walker/assistance
PT/OT
Eliquis for DVT ppx, pr per primary
Pain control, avoid narcs if possible
Dressing to remain while inpatient/SNF
Outpatient follow-up 2-4 weeks for xrays and exam (Dr. Briscoe's PA)
Will sign off from ortho standpoint for now. Please re-engage with further questions/concerns.
Plan
.
Surgery / Date: Right hip Gamma 2 Mar 19 (Lu[facility] Felipe)
Activity:
Out of bed.
PT/OT
Subjective
.
.:
Patient resting comfortably in bed. Seems restless/antsy and confused. Pulled off his mepilex dressing overnight. Comminicates only in Fijian.
Vital Signs and Labs
.
Vital Signs and Labs:
Lab Results
02/25/25 06:17
02/25/25 06:17
Temp Pulse Resp BP Pulse Ox
98.0 F 88 17 128/85 96
02/26/25 08:01 02/26/25 08:01 02/26/25 08:01 02/26/25 08:01 02/26/25 08:01
Physical Exam
-
Right hip/thigh: incisions c/d/i. No erythema or drainage. New dressings placed over incisions. minimal swelling. Some discomfort with ROM hip. Calf soft and non tender to palpation. N/v intact distally.
[2025-02-26] MEDS: ZYPREXA 2.5 MG PO (12:45)
--- NOTE | 2025-02-26 14:15 | W.DCSUMMARY ---
Discharge Summary
Discharge Data
Date of Admission: 02/23/25
Date of Discharge: 02/26/25
-
Pending Results: No
Hospital Course
89-year-old Guinean-speaking male past medical history of atrial fibrillation on Eliquis with pacemaker, dementia, hypertension, diabetes
Presented from facility after an unwitnessed fall with complaints of right hip pain. Normally ambulates independently with a walker. Was taken to the OR with orthopedic surgery on 02/24/2025 for right intertrochanteric hip fracture open reduction
internal fixation with cephalomedullary nail. Tolerated procedure well however did experience some postop confusion delirium that continues to be an ongoing issue in the setting of dementia. Expect will improve over time once returns to own
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
Per orthopedic surgery will need continued outpatient follow-up in 2 to 4 weeks for x-rays and exam with Dr. Bradford. Continue weightbearing as tolerated bilaterally with walker and assistance. Continue PT OT. PT OT recommends SNF
Cervical spine CT
IMPRESSION:
No evidence of acute fracture or dislocation.
Head CT
IMPRESSION:
No evidence of acute intracranial abnormality.
Hip Xray
IMPRESSION: Intertrochanteric fracture of the right proximal femur.
CXR
IMPRESSION:
The lungs appear clear with no evidence for pneumothorax or pleural effusion.
Loss of definition of the lateral left fifth rib, perhaps from old fracture. If there are symptoms involving the left chest, further evaluation with left rib radiographs could be considered.
Femur Xray
IMPRESSION:
Minimally displaced intertrochanteric right femoral fracture.
Hip
Xray
IMPRESSION: Fluoroscopy and intraoperative radiographs utilized for internal fixation of right proximal femoral fracture.
Was seen and examined on day of discharge which was 02/26/2025. No acute overnight reports.
Per nursing has been restless however not agitated. Did not sleep much overnight.
Scleral Anicteric
MMM
CTABL
RRR, S1/S2
Soft, NT, ND, BS+
Warm, Dry
Calm
More than 30 minutes spent in discharge including
Final examination of the patient
Summarizing hospital stay
Instructions for continuing care to all relevant caregivers
Preparation of discharge records, prescriptions, and referral forms
Total time spent (in minutes): 33mins
Discharge Plan
-
Patient Disposition: [facility]/SNF
Discharge Diagnosis/Procedures: Right hip fracture
Condition: Fair
Diet: As tolerated
Activity: With assistance and With Walker
Driving Restrictions: No driving
Activity Restrictions/Additional Instructions:
Presented from facility after an unwitnessed fall with complaints of right hip pain. Normally ambulates independently with a walker. Was taken to the OR with orthopedic surgery on 02/24/2025 for right intertrochanteric hip fracture open reduction
internal fixation with cephalomedullary nail. Tolerated procedure well however did experience some postop confusion delirium that continues to be an ongoing issue in the setting of dementia. Expect will improve over time once returns to own
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
Per orthopedic surgery will need continued outpatient follow-up in 2 to 4 weeks for x-rays and exam with Dr. Bradford. Continue weightbearing as tolerated bilaterally with walker and assistance. Continue PT OT. PT OT recommends SNF
Cervical spine CT
IMPRESSION:
No evidence of acute fracture or dislocation.
Head CT
IMPRESSION:
No evidence of acute intracranial abnormality.
Hip Xray
IMPRESSION: Intertrochanteric fracture of the right proximal femur.
CXR
IMPRESSION:
The lungs appear clear with no evidence for pneumothorax or pleural effusion.
Loss of definition of the lateral left fifth rib, perhaps from old fracture. If there are symptoms involving the left chest, further evaluation with left rib radiographs could be considered.
Femur Xray
IMPRESSION:
Minimally displaced intertrochanteric right femoral fracture.
Hip
Xray
IMPRESSION: Fluoroscopy and intraoperative radiographs utilized for internal fixation of right proximal femoral fracture.
Referrals:
Alexandre Huynh MD [Family Provider]
Kamaljit Briscoe MD [Active, Orthopedics] - in two to four weeks
Prescriptions:
Continued
cholecalciferol (vitamin D3) [Vitamin D3] 125 mcg (5,000 unit) Tablet
125 mcg PO DAILY
quetiapine [Seroquel] 25 mg Tablet
25 mg PO DAILY
folic acid 1 mg Tablet
1 mg PO DAILY
finasteride [Proscar] 5 mg Tablet
5 mg PO DAILY
Eliquis 2.5 mg Tablet
2.5 mg PO BID
quetiapine [Seroquel] 25 mg Tablet
75 mg PO HS
acetaminophen 325 mg Tablet
650 mg PO Q6H PRN (Reason: mild pain)
trazodone 50 mg Tablet
50 mg PO HS
melatonin 3 mg Tablet
3 mg PO HS PRN (Reason: for sundowning behaviors)
magnesium hydroxide [Milk of Magnesia] 400 mg/5 mL Suspension
30 ml PO DAILY PRN (Reason: constipation)
tamsulosin [Flomax] 0.4 mg Capsule
0.4 mg PO HS
bisacodyl 10 mg Suppository
10 mg NM DAILY PRN (Reason: constipation )
Rx Instructions:
give if no results from MOM
memantine-donepezil [Namzaric] 28-10 mg Capsule,Sprinkle,Er 24hr
1 cap PO .EVENING
cyanocobalamin (vitamin B-12) 1,000 mcg Tablet
1,000 mcg PO DAILY
Discharge Orders:
Discharge Patient (As Directed); Ordered 02/26/25
Ordered By: Nolan Noriega
Discharge Date and Time
Print Language: Guinean
--- NOTE | 2025-02-26 15:08 | CM ---
CM following re: discharge planning.
Reviewed pt's chart, met with pt and spoke to pt's son Hernan to update on discharge plan progress.
Discharge order noted. Both pt and his son are aware, expressed their agreement with discharge.
IMM reviewed, placed on chart, pt has a copy.
Pt is a senior care care resident at [facility]. A referral to [facility] made, spoke to liaison Andreia, pt is accepted for admission today.
to arrange ambulance transport BLS. [facility]NC completed and left with .
[facility] nursing report: [phone]
Discharge instructions fax: [phone]
D/C plan: [facility].
--- NOTE | 2025-02-26 15:13 | PN.CDI ---
CDI
- -
CDI:
Physician Documentation Request
Admit Date: 02/23/25 12:22
Dear Hari,
Patient admitted with right femoral fracture s/p right intertrochanteric hip fracture open reduction and internal fixation with cephalomedullary nail.
02/23 Hgb 11.8
02/25 Hgb 9.4
Based on the above, please clarify, in your progress note, which of the following is the most likely diagnosis you are evaluating, monitoring and/or treating?
Acute blood loss anemia
Insignificant abnormal lab finding
Other
Use of terms such as suspected, likely, concern for, or probable (associated with a specific diagnosis that is being evaluated, monitored, or treated as if it exists) are acceptable and can be coded in the inpatient setting, when documented at the
time of discharge.
Thank you,
Shanelle LAMBERT,RN,CCDS
CDI Specialist
Available via [facility] text
Please use your independent medical judgment in providing your response.
[2025-02-26 15:29] VITALS: BP 147/82
[2025-02-26] MEDS: MORPHINE SULFATE 2 MG IV (16:49)
== END 2025-02-26 18:38 | DRG 481 ==
LOC: 2 SOUTH 12:22
PROVIDERS: Physician Assistant; Student in an Organized Health Care Education/Training Program; ADMITTING PHYSICIAN Hospitalist; ATTENDING PHYSICIAN Hospitalist; CONSULT PHYSICIAN Orthopaedic Surgery; EMERGENCY PHYSICIAN Emergency Medicine; FAMILY PHYSICIAN Internal Medicine
PROC: 0QS604Z Reposition Right Upper Femur with Internal Fixation Device, Open Approach (ICD-10-PCS; 2025-02-24)
DX: S72.141A Displaced intertrochanteric fracture of right femur, initial encounter for closed fracture (principal); F05 Delirium due to known physiological condition; N17.9 Acute kidney failure, unspecified; Z79.01 Long term (current) use of anticoagulants; I48.0 Paroxysmal atrial fibrillation; F03.90 Unspecified dementia, unspecified severity, without behavioral disturbance, psychotic disturbance, mood disturbance, and anxiety; I10 Essential (primary) hypertension; E11.9 Type 2 diabetes mellitus without complications; W01.0XXA Fall on same level from slipping, tripping and stumbling without subsequent striking against object, initial encounter; Z95.0 Presence of cardiac pacemaker; N40.0 Benign prostatic hyperplasia without lower urinary tract symptoms
CPT/HCPCS: 70450; 71045; 72125; 73502; 73552; 76000; 80048; 80053; 82550; 82962; 85025; 86850; 86900; 86901; 87070; 93005; 93288; 96374; 97163; 97167; 97530; 99285; C1713; J2358